=== PATIENT | male | born 1995 | race Caucasian/White ===

== ENCOUNTER 2022-01-16 12:07 | Inpatient (IN) | payer OTHER ==
[2022-01-16 14:06] VITALS: BMI 39.3
[2022-01-16] MEDS ORDERED: IBUPROFEN 600 MG TABLET (FP) PO PRN (15:13)
[2022-01-16] MEDS ORDERED: LORazepam 1 MG TABLET PO PRN (15:13)
[2022-01-16] MEDS ORDERED: MAGNESIUM CITRATE 300 ML BOTTLE PO PRN (15:13)
[2022-01-16] MEDS ORDERED: BISMUTH SUBSALICYLATE 262 MG/15 ML BTL PO PRN (15:13)
[2022-01-16] MEDS ORDERED: LOPERAMIDE HCL 2 MG CAPSULE PO PRN (15:13)
[2022-01-16] MEDS ORDERED: MAG HYDROX/AL HYDROX/SIMETH 30 ML UNIT-DOSE CUP PO PRN (15:13)
[2022-01-16] MEDS ORDERED: ONDANSETRON *ODT* 4 MG TABLET SL PRN (15:13)
[2022-01-16] MEDS ORDERED: MAGNESIUM HYDROX 2400MG/30ML ORAL SUSPENSION 30 ML CUP PO PRN (15:13)
[2022-01-16] MEDS ORDERED: IBUPROFEN 400 MG TABLET (FP) PO PRN (15:13)
[2022-01-16] MEDS ORDERED: DICYCLOMINE HCL 10 MG CAPSULE PO PRN (15:13)
[2022-01-16] MEDS ORDERED: ACETAMINOPHEN 325 MG TABLET (FP) PO PRN (15:13)
[2022-01-16] MEDS ORDERED: BENZOCAINE/MENTHOL (CHLORASEPTIC ) LOZENGE MM PRN (15:13)
[2022-01-16] MEDS: METHOCARBAMOL 500 MG TABLET PO PRN (17:53)
[2022-01-16] MEDS: hydrOXYzine PAMOATE 25 MG CAPSULE (FP) PO SCH ×2 (17:53→22:09)
[2022-01-16] MEDS: THIAMINE HCL 100 MG TABLET (FP) PO SCH (22:09)
[2022-01-16] MEDS: LORazepam 2 MG TABLET PO SCH (22:10)
[2022-01-16] MEDS: MELATONIN 5 MG TABLETS PO SCH (22:10)
[2022-01-17] MEDS: ACETAMINOPHEN 325 MG TABLET (FP) PO PRN (00:02)
[2022-01-17] MEDS: METHOCARBAMOL 500 MG TABLET PO PRN ×3 (00:03→22:02)
[2022-01-17] MEDS: LORazepam 2 MG TABLET PO SCH ×4 (04:02→22:01)
[2022-01-17] MEDS: hydrOXYzine PAMOATE 25 MG CAPSULE (FP) PO SCH ×5 (06:24→22:01)
[2022-01-17] MEDS: PRENATAL VITAMINS W/ FOLIC ACID TABLET (FP) PO SCH (10:03)
[2022-01-17] MEDS: NICOTINE 7 MG/24 HOURS TOPICAL PATCH TD SCH (10:05)
[2022-01-17 10:30] LABS: HEMATOCRIT 41.2 % (35.4-49); MCH 29.4 pg (25.7-33.7); MEAN CELL VOLUME 86.5 fl (80-96); MEAN PLT VOLUME 8.5 fl (7.5-11.1); PLATELET COUNT 218 10^3/uL (134-434); RBC 4.76 M/mm3 (4.00-5.60); RDW 16.3 % (11.9-15.9); WHITE BLOOD COUNT 9.7 K/mm3 (4.0-10.0)
[2022-01-17 10:37] LABS: CALCIUM 9.5 mg/dL (8.5-10.1)
[2022-01-17 10:38] LABS: ALBUMIN 3.7 g/dl (3.4-5.0); BLOOD UREA NITROGEN 4.4 mg/dL (7-18)
[2022-01-17 10:41] LABS: BILIRUBIN,TOTAL 2.3 mg/dL (0.2-1); CREATININE 0.7 mg/dL (0.55-1.3); TOT PROT 8.2 g/dl (6.4-8.2)
[2022-01-17] MEDS: THIAMINE HCL 100 MG TABLET (FP) PO SCH (22:01)
[2022-01-17] MEDS: MELATONIN 5 MG TABLETS PO SCH (22:01)
[2022-01-18] MEDS: LORazepam 1 MG TABLET PO SCH ×4 (05:02→22:05)
[2022-01-18] MEDS: hydrOXYzine PAMOATE 25 MG CAPSULE (FP) PO SCH ×5 (05:02→22:06)
[2022-01-18] MEDS: PRENATAL VITAMINS W/ FOLIC ACID TABLET (FP) PO SCH (10:28)
[2022-01-18] MEDS: METHOCARBAMOL 500 MG TABLET PO PRN ×2 (10:29→17:36)
[2022-01-18] MEDS: NICOTINE 7 MG/24 HOURS TOPICAL PATCH TD SCH (10:30)
[2022-01-18] MEDS ORDERED: POTASSIUM CHLORIDE TABS 20 MEQ TABLET.ER (FP) PO ONE ×2 (13:57→18:00)
[2022-01-18] MEDS: MELATONIN 5 MG TABLETS PO SCH (22:06)
[2022-01-18] MEDS: THIAMINE HCL 100 MG TABLET (FP) PO SCH (22:06)
[2022-01-19] MEDS ORDERED: LORazepam 0.5 MG TABLET PO PRN
[2022-01-19] MEDS: METHOCARBAMOL 500 MG TABLET PO PRN ×4 (01:45→23:19)
[2022-01-19] MEDS: LORazepam 0.5 MG TABLET PO SCH ×4 (05:17→22:10)
[2022-01-19] MEDS: hydrOXYzine PAMOATE 25 MG CAPSULE (FP) PO SCH ×5 (05:18→22:10)
[2022-01-19] MEDS: PRENATAL VITAMINS W/ FOLIC ACID TABLET (FP) PO SCH (10:14)
[2022-01-19] MEDS: NICOTINE 7 MG/24 HOURS TOPICAL PATCH TD SCH (10:14)
[2022-01-19 12:31] LABS: BLOOD UREA NITROGEN 3.8 mg/dL (7-18); CALCIUM 10.3 mg/dL (8.5-10.1)
[2022-01-19 12:32] LABS: ALBUMIN 3.4 g/dl (3.4-5.0)
[2022-01-19 12:35] LABS: CREATININE 0.8 mg/dL (0.55-1.3)
[2022-01-19 12:36] LABS: BILIRUBIN,TOTAL 4.2 mg/dL (0.2-1); TOT PROT 7.8 g/dl (6.4-8.2)
[2022-01-19] MEDS: THIAMINE HCL 100 MG TABLET (FP) PO SCH (22:10)
[2022-01-19] MEDS: MELATONIN 5 MG TABLETS PO SCH (22:10)
[2022-01-20] MEDS ORDERED: LORazepam 0.5 MG TABLET PO ONE (05:00)
[2022-01-20] MEDS: hydrOXYzine PAMOATE 25 MG CAPSULE (FP) PO SCH ×2 (05:07→10:02)
[2022-01-20] MEDS: METHOCARBAMOL 500 MG TABLET PO PRN ×2 (05:10→10:40)
[2022-01-20] MEDS: ACETAMINOPHEN 325 MG TABLET (FP) PO PRN (07:06)
[2022-01-20 09:28] VITALS: BP 141/93; PULSE 111; TEMP 97.8
[2022-01-20] MEDS: PRENATAL VITAMINS W/ FOLIC ACID TABLET (FP) PO SCH (10:02)
[2022-01-20] MEDS: NICOTINE 7 MG/24 HOURS TOPICAL PATCH TD SCH (10:02)
[2022-01-20 11:41] LABS: INR 1.55 (0.83-1.09); PROTHROMBIN TIME (PATIENT) 17.9 SEC (9.7-13.0)
[2022-01-20 12:46] LABS: ALBUMIN 3.3 g/dl (3.4-5.0)
[2022-01-20 12:48] LABS: CALCIUM 9.8 mg/dL (8.5-10.1)
[2022-01-20 12:49] LABS: BLOOD UREA NITROGEN 5.2 mg/dL (7-18)
[2022-01-20 12:51] LABS: BILIRUBIN,TOTAL 3.7 mg/dL (0.2-1); CREATININE 0.8 mg/dL (0.55-1.3)
[2022-01-20 12:53] LABS: TOT PROT 7.6 g/dl (6.4-8.2)
== END 2022-01-20 11:27 | disposition home or self-care (01) | DRG 775 ==
LOC: YASAS 12:07 → Y3N 15:16
PROVIDERS: ADMIT Allergy & Immunology; ATTEND Surgery
PROC: HZ2ZZZZ Detoxification Services for Substance Abuse Treatment (ICD-10-PCS; principal; 2022-01-16)
DX: F10.230 Alcohol dependence with withdrawal, uncomplicated (principal); F12.20 Cannabis dependence, uncomplicated; F17.210 Nicotine dependence, cigarettes, uncomplicated; F20.9 Schizophrenia, unspecified; F31.9 Bipolar disorder, unspecified; F41.9 Anxiety disorder, unspecified; F32.A Depression, unspecified; B18.2 Chronic viral hepatitis C; E87.6 Hypokalemia; E87.1 Hypo-osmolality and hyponatremia; E11.65 Type 2 diabetes mellitus with hyperglycemia; Z79.84 Long term (current) use of oral hypoglycemic drugs; R94.5 Abnormal results of liver function studies
CPT/HCPCS: 36415; 80053; 82962; 83036; 85027; 85610; 86780; 87811; C9803-CS; U0003; U0005